=== PATIENT | male | born 1960 | race African-American/Black ===

== ENCOUNTER → 2017-07-26 | Outpatient (CLI) | payer OTHER ==
[~2017-07-26] VITALS: Ht 180.3 cm; Wt 84.5 kg
[~2017-07-26] MED LIST: NIFE30TA60 PO
[2017-07-26 15:56] VITALS: BP 193/103; PULSE 83; RESP 18; Ht 180.3 cm; Wt 84.5 kg
[2017-07-26 16:08] VITALS: BP 194/110
--- NOTE | 2017-07-26 16:15 | PN ---
Date/Time of Note Date/Time of Note DATE: 07/26/17 TIME: 16:09 Outpatient Progress Note Chief Complaint Hypertension/drug abuse HPI Hypertension/acute on chronic, moderately severe, not associated with headache or dizziness, blood pressure not relieved with multiple medication, no chest pain, no local focal weakness, no impaired vision, Drug abuse/patient had history of drug abuse, patient took amphetamine 1-1/2 week ago, Review of Systems Const: No Fever, no chills, no Wt. loss, no Fatigue, normal appetite, no diaphoresis. Eyes: No pain, no discharge, no redness, no visual change, no foreign body. ENT: No pain, no bleeding, no congestion, no sore throat, no dysphagia, no discharge or rhinitis. Lymph: No adenopathy, no tender nodes, no lymphedema. Resp: No SOB, no cough, no sputum, no wheezing, no chest pain. CV: No chest pain, no palpitaions, no FIGUEROA, no PND, no edema. GI: Normal appetite, no pain, no nausea, no vomiting, no diarrhea, no blood, no constipation. : No frequency, no urgency, no dysuria, no hematuria, no flank pain, no discharge, no bleeding. Musc: no back pain, no neck pain, no knee pain, no restricted ROM. Skin: No rash, no skin lesions, no erythema, no laceration, no bruising, no pruritus. Neuro: No YU, no dizziness, no syncope, no seizure, no focal-weakness. Endo: No polyuria, no polydypsia, no dry-skin, no temp-intolerance. Psych: No hallucinations, no depression, no anxiety, no suicidal ideation. Ext: No edema, no pain, no ulcer, no weakness. Physical Exam General Appearance: A 57 year-old male who appears well-developed, well- nourished, in no acute distress. HEENT: Head normocephalic, atraumatic. Pupils equal, round, reactive to light and accommodate. Sclerae are no jaundice. Nasal turbinates pink without erythema or nasal discharge. Mucous membranes pink and moist without lesions. Oropharynx clear without any exudate or discharge. NECK: Supple. Trachea midline, No thyromegaly, No cervical lymphadenopathy, No mass, No carotid bruits, No JVD, Carotid pulses 2+ bilaterally. PULMONARY: Clear to auscultaion bilaterally, No retractions, Chest expansion symmetric bilaterally, no rales, no ronchi, no dulness on percussion. CARDIAC: Normal SI and S2, Regular rate and rythm, no murmur, gallop, or rub. GASTROINTESTINAL: Abdomen is soft, non-tender, Non Rigid, No distention, Positive bowel sounds x4 quadrants, Liver normal. SKIN: Warm, dry, no rash, no bruise, no echmosis. EXTREMITIES: Bilateral lower extremities normal, no edema, no phlabitus, pulse palpable, no contracture. MUSCULOSKELETAL: Spine Normal, Non-tender, Normal range of motion, No swelling, no deformity, no clubbing, or cyanosis, the patient has no edema to bilateral lower extremities, dorsalis pedis pulses palpable bilaterally. NEUROLOGIC: The patient is awake, alert, oriented, responding to yes/no questions appropriately, moving all extremities, cranial nerve intact, normal strenght, normal power, normal coordination, normal gait. PMH Allergy none Past medical history hypertension/drug abuse Social Hx No smoking no drinking, Family Hx Unknown Assessment/Plan Impression Hypertension/drug abuse Plan Patient education done about blood pressure, and possible complications, patient also explained that taking drugs will aggravate the problem 10 times more, and patient may end up with a CVA end up in a penitentiary, and may be also, Patient encouraged to be compliant and follow with the primary care physician, Discontinue drugs completely, Patient already on multiple medication, will also add clonidine 0.1 mg every 6 hours as needed for blood pressure 150 systolic or100 diastolic and if the blood pressure remains elevated to contact primary care physician, Risk of CVA and other complication explained to the patient in detail, , BON BALL MD Jul 26, 2017 16:15
== END | disposition home or self-care (01) ==
LOC: DCC 16:02
PROVIDERS: ATTEND Internal Medicine
DX: I10 Essential (primary) hypertension (principal); F19.10 Other psychoactive substance abuse, uncomplicated

== ENCOUNTER 2017-12-17 16:46 | Emergency (ER) | END 2017-12-17 19:29 | disposition left against medical advice (07) ==

== ENCOUNTER 2018-09-05 23:54 | Emergency (ER) | END 2018-09-06 02:51 | disposition home or self-care (01) ==